=== PATIENT | male | born 1980 | race Native Hawaiian/Other Pacific Islander ===

== ENCOUNTER 2017-01-03 15:27 | Emergency (ER) | payer OTHER ==
[~2017-01-03] VITALS: Ht 170.2 cm; Wt 83.9 kg
[~2017-01-03 15:27] MED LIST: OXYCODONE30 MG PO; XANAX2 MG OR
[2017-01-03 15:43] VITALS: TEMP 98.7
[2017-01-03 16:39] VITALS: BP 135/92
== END 2017-01-03 16:43 | disposition home or self-care (01) ==
LOC: ED 15:27
PROC: 2W3CX1Z Immobilization of Right Lower Arm using Splint (ICD-10-PCS; principal; 2017-01-03)
DX: S62.396A Other fracture of fifth metacarpal bone, right hand, initial encounter for closed fracture (principal); Y04.0XXA Assault by unarmed brawl or fight, initial encounter; Y93.89 Activity, other specified; Y92.89 Other specified places as the place of occurrence of the external cause
CPT/HCPCS: 99282; L3908

== ENCOUNTER 2017-10-18 03:35 | Outpatient (CLI) | payer OTHER ==
[~2017-10-18 03:35] MED LIST changes: -XANAX2 MG OR; +XANAX2 MG PO
== END 2017-10-18 03:40 | disposition short-term general hospital (02) ==
LOC: AMB 03:35
DX: R07.89 Other chest pain (principal); I49.8 Other specified cardiac arrhythmias
CPT/HCPCS: A0425; A0427

== ENCOUNTER 2017-10-18 03:47 | Emergency (ER) | payer OTHER ==
[~2017-10-18] VITALS: Ht 167.6 cm; Wt 83.9 kg
[2017-10-18 04:14] LABS: PLATELET COUNT 287 K/uL (142-355)
[2017-10-18 04:36] LABS: POTASSIUM 3.5 mmol/L (3.6-5.2); SODIUM 138 mmol/L (136-145)
[2017-10-18 05:14] VITALS: BP 117/73; TEMP 98.8
== END 2017-10-18 05:15 ==
LOC: ED 03:47
PROVIDERS: Internal Medicine
DX: M94.0 Chondrocostal junction syndrome [Tietze] (principal); R07.89 Other chest pain; A08.4 Viral intestinal infection, unspecified; R11.2 Nausea with vomiting, unspecified; R19.7 Diarrhea, unspecified
CPT/HCPCS: 36415; 80053; 82550; 84484; 85027; 93005; 96374; 96375; 99284; J2270; J2550

== ENCOUNTER 2018-01-31 10:42 | Outpatient (CLI) | payer OTHER ==
[2018-01-31 11:38] LABS: PLATELET COUNT 275 K/uL (142-355)
[2018-01-31 12:04] LABS: POTASSIUM 4.6 mmol/L (3.6-5.2)
== END 2018-01-31 19:28 | disposition home or self-care (01) ==
LOC: RAD 10:42
PROVIDERS: Emergency Medicine
DX: G62.89 Other specified polyneuropathies (principal); F41.8 Other specified anxiety disorders
CPT/HCPCS: 36415; 80053; 80061; 80307; 84436; 84443; 84479; 85027

== ENCOUNTER 2018-08-07 21:28 | Emergency (ER) | payer OTHER ==
[~2018-08-07] VITALS: Ht 167.6 cm; Wt 77.1 kg
[2018-08-07 22:04] LABS: PLATELET COUNT 302 K/uL (142-355)
[2018-08-07 22:31] LABS: POTASSIUM 3.6 mmol/L (3.6-5.2); SODIUM 139 mmol/L (136-145)
[2018-08-07 23:10] VITALS: BP 230/86; TEMP 98.2
== END 2018-08-07 23:10 ==
LOC: ED 21:41
PROVIDERS: Internal Medicine
DX: R07.89 Other chest pain (principal); D72.829 Elevated white blood cell count, unspecified; R00.1 Bradycardia, unspecified
CPT/HCPCS: 80053; 82550; 84484; 85027; 93005; 96374; 96375; 99284; J2270; J2405

== ENCOUNTER 2018-09-09 15:18 | Outpatient (CLI) | payer OTHER ==
[2018-09-09 15:50] LABS: PLATELET COUNT 307 K/uL (142-355)
[2018-09-09 16:11] LABS: POTASSIUM 3.4 mmol/L (3.6-5.2)
== END 2018-09-09 19:24 | disposition home or self-care (01) ==
LOC: LABW 15:18
PROVIDERS: Emergency Medicine
DX: G89.29 Other chronic pain (principal); F41.8 Other specified anxiety disorders; F11.20 Opioid dependence, uncomplicated; R51 Headache
CPT/HCPCS: 36415; 80053; 80061; 80074; 84403; 84439; 84443; 85027; 87535; G0432

== ENCOUNTER 2019-08-20 17:17 | Emergency (ER) | payer OTHER ==
[~2019-08-20] VITALS: Ht 170.2 cm; Wt 88.9 kg
[2019-08-20 18:43] VITALS: BP 140/90; TEMP 98.7
== END 2019-08-20 18:41 | disposition home or self-care (01) ==
LOC: ED 17:17
DX: L03.113 Cellulitis of right upper limb (principal); T63.301A Toxic effect of unspecified spider venom, accidental (unintentional), initial encounter; Y92.89 Other specified places as the place of occurrence of the external cause
CPT/HCPCS: 96372; 99283; J0696; J1885

== ENCOUNTER 2019-10-06 09:02 | Emergency (ER) | payer OTHER ==
[~2019-10-06] VITALS: Ht 170.2 cm; Wt 86.2 kg
[2019-10-06 09:11] VITALS: TEMP 98.7
[2019-10-06 09:48] LABS: POTASSIUM 2.9 mmol/L (3.6-5.2)
[2019-10-06 09:51] LABS: PLATELET COUNT 300 K/uL (142-355)
[2019-10-06 10:27] VITALS: BP 128/84
== END 2019-10-06 10:20 | disposition home or self-care (01) ==
LOC: ED 09:02
PROVIDERS: Family Medicine
DX: L02.414 Cutaneous abscess of left upper limb (principal); E87.6 Hypokalemia
CPT/HCPCS: 80053; 85027; 90471; 90715; 96372; 99283; J1885

== ENCOUNTER 2020-03-18 00:15 | Emergency (ER) | payer OTHER ==
[~2020-03-18] VITALS: Ht 170.2 cm; Wt 86.2 kg
[2020-03-18 00:15] VITALS: TEMP 99
[2020-03-18 00:53] LABS: POTASSIUM 3.1 mmol/L (3.6-5.2)
[2020-03-18 01:03] LABS: PLATELET COUNT 368 K/uL (142-355)
[2020-03-18 08:28] VITALS: BP 118/82
== END 2020-03-18 08:28 | disposition other institution (70) ==
LOC: ED 00:19
PROVIDERS: Hospitalist
DX: R45.851 Suicidal ideations (principal); T14.91XA Suicide attempt, initial encounter; F32.89 Other specified depressive episodes; X83.8XXA Intentional self-harm by other specified means, initial encounter; Y92.148 Other place in prison as the place of occurrence of the external cause
CPT/HCPCS: 36415; 80053; 80307; 80320; 80329; 81000; 85027; 87635; 93005; 96365; 96372; 96375; 99284; 99285; J0696; J2405; J3410; U0003